=== PATIENT | female | born 2000 | race Caucasian/White ===

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

== ENCOUNTER 2020-02-20 12:59 | Emergency (ER) | payer OTHER ==
[~2020-02-20] VITALS: Ht 172.7 cm; Wt 66.8 kg
[~2020-02-20 12:59] MED LIST: ADDERALL20 MG PO; YASMIN 3 MG-0.01 TAB PO
[2020-02-20 13:03] VITALS: BP 132/81; TEMP 98.4
[2020-02-20 14:13] VITALS: PULSE 84
== END 2020-02-20 14:13 | disposition home or self-care (01) ==
LOC: COL.ER 12:59
DX: S60.443A External constriction of left middle finger, initial encounter (principal); F90.9 Attention-deficit hyperactivity disorder, unspecified type; W49.04XA Ring or other jewelry causing external constriction, initial encounter; Y92.009 Unspecified place in unspecified non-institutional (private) residence as the place of occurrence of the external cause